=== PATIENT | female | born 1965 | race Caucasian/White ===

== ENCOUNTER 2017-06-02 10:45 | Emergency (ER) | payer MEDICAID ==
[~2017-06-02] VITALS: Ht 154.9 cm; Wt 62.5 kg
[2017-06-02 10:48] VITALS: Ht 154.9 cm; Wt 62.5 kg
[2017-06-02] MEDS ORDERED: HC30CR25 TOP (11:18)
[2017-06-02] MEDS ORDERED: PRED20TA PO (11:18)
[2017-06-02] MEDS ORDERED: BEN25 PO (11:18)
--- NOTE | 2017-06-02 11:28 | ERD ---
ER Documentation Chief Complaint Chief Complaint pt bib self with c/o "patches of areas to skin rough" not getting better HPI 51-year-old female comes emergency department with areas of erythema and pain to her lower legs that started 2 days ago. The patient states that she was at home when this started and she describes burning type pain and this is happened before and 3 other occasions. She has a very well delineated rash to her ankles as well as her legs but she denies any new leggings or clothing, lotions , detergents, creams. She denies any fevers, chills. ROS All systems reviewed and are negative except as per history of present illness. Medications Home Meds Active Scripts Hydrocortisone* Topical (Hydrocortisone* Topical) 2.5%-28.3 Gm Cream..g., 1 APPLIC TOP BID, #1 TUB Prov:VASHTI MORTENSEN PA-C 06/02/17 Diphenhydramine Hcl* (Benadryl*) 25 Mg Cap, 25 MG PO Q6, #30 CAP Prov:VASHTI MORTENSEN PA-C 06/02/17 Prednisone* (Prednisone*) 20 Mg Tab, 40 MG PO DAILY for 4 Days, TAB Prov:VASHTI MORTENSEN PA-C 06/02/17 Allergies Allergies: Coded Allergies: No Known Allergy (Unverified , 06/02/17) PMhx/Soc Medical and Surgical Hx: pt denies Medical Hx Hx Substance Use: No Hx Tobacco Use: No Physical Exam Vitals Vital Signs Date Time Temp Pulse Resp B/P Pulse Ox O2 Delivery O2 Flow Rate FiO2 06/02/17 10:48 98.4 74 16 134/76 98 Physical Exam General: Well-developed, well-nourished. The patient appears in no acute distress. HEENT: Head is normocephalic, atraumatic. No scleral icterus. Neck: Supple. Nontender. Lungs: Clear to auscultation. Normal air movement. Heart: Regular rate and rhythm. S1 and S2 are normal. No murmurs, gallops, or rubs. Abdomen: Soft, nontender, nondistended. Bowel sounds are normoactive. Extremities: Well demarcated erythematous rash to her ankles bilaterally at the same level. There is also a triangular-shaped erythematous rash to her lateral lower legs bilaterally. It is linear, there is no lymphatic streaking, no warmth. No vesicles. There is no swelling. Neurologic: Alert and oriented 3. No focal deficits. Skin: Normal turgor. No rash or lesions. Results 24 hrs Current Medications Medications (Trade) Dose Ordered Sig/Liseth Route PRN Reason Start Time Stop Time Status Last Admin Dose Admin Diphenhydramine HCl (Benadryl) 25 mg ONCE ONCE PO 06/02/17 11:30 06/02/17 11:31 06/02/17 11:17 Prednisone (Prednisone) 40 mg ONCE ONCE PO 06/02/17 11:30 06/02/17 11:31 06/02/17 11:17 Procedures/MDM 51-year-old female comes in with a well demarcated rashes to her lower extremities, and has been ongoing for about 2 days and she has had this 3 other occasions. I have asked her multiple times that she has had a new clothing, or leggings or application to the scanner detergent but she denies. Given the well demarcated presentation of the rash this is most consistent with contact dermatitis. There is some erythema but no signs of infection, DVT, nodules, shingles, abscess. The patient was given a dose of prednisone, as well as Benadryl in the emergency department, and she will also be continued on hydrocortisone for local application. Departure Diagnosis: Primary Impression: Rash Condition: Good Patient Instructions: Contact Dermatitis VASHTI MORTENSEN PA-C Jun 02, 2017 11:28
[2017-06-02] MEDS ORDERED: predniSONE 20 MG TAB PO ONE (11:30)
[2017-06-02] MEDS ORDERED: DIPHENHYDRAMINE 25 MG CAP PO ONE (11:30)
== END 2017-06-02 11:35 | disposition home or self-care (01) ==
LOC: FTE 10:45
DX: R21 Rash and other nonspecific skin eruption (principal)
CPT/HCPCS: J7512; Z7502; Z7610; 99284

== ENCOUNTER 2017-09-18 14:17 | Emergency (ER) | END 2017-09-18 19:24 | disposition home or self-care (01) ==

== ENCOUNTER 2018-09-11 16:36 | Emergency (ER) | payer MEDICAID, OTHER ==
[~2018-09-11] VITALS: Ht 162.6 cm; Wt 65.0 kg
[~2018-09-11 16:36] MED LIST: AMLO5TAB4 PO; DIPH1TAB PO; HYDR25TA6 PO; NAPR-688 PO; ONDA4TAB11 PO
[2018-09-11 16:41] VITALS: Ht 162.6 cm; Wt 65.0 kg
--- NOTE | 2018-09-11 17:50 | ERD ---
ER Documentation Chief Complaint Chief Complaint epigastric abd pain HPI The patient is a 53-year-old female, presenting to the ER because of chronic epigastric abdominal pain for more than 4 months, worse with eating, the symptom is worse for the last week. She denies fever, chills, neck pain, chest pain, odynophagia, weight loss, vomiting, dysuria, has loose stool for the last day. She does not smoke, drink Past medical history: Chronic abdominal pain, hypertension Past surgical history: Cholecystectomy ROS All systems reviewed and are negative except as per history of present illness. Medications Home Meds Active Scripts Diphenoxylate HCl/Atropine (Lomotil 2.5-0.025 mg Tablet) 1 Each Tablet, 1 TAB PO Q6H PRN for DIARRHEA, #20 TAB Prov:KAY ZAPIEN DO 09/18/17 Naproxen* (Naproxen*) 500 Mg Tablet, 500 MG PO BID PRN for PAIN, #20 TAB Prov:KAY ZAPIEN DO 09/18/17 Ondansetron (Zofran Odt) 4 Mg Tab.rapdis, 4 MG PO Q6, #10 Prov:KAY ZAPIEN DO 09/18/17 Reported Medications Hydrochlorothiazide* (Hydrochlorothiazide*) 25 Mg Tab, 25 MG PO DAILY, #30 TAB 09/18/17 Amlodipine Besylate* (Norvasc*) 5 Mg Tablet, 5 MG PO DAILY, TAB 09/18/17 Allergies Allergies: Coded Allergies: No Known Allergy (Unverified , 09/18/17) PMhx/Soc History of Surgery: Yes (gallbladder ) Hx Cardiac Disorders: Yes (HTN) Hx Alcohol Use: No Hx Substance Use: No Hx Tobacco Use: No Physical Exam Vitals Vital Signs Date Temp Pulse Resp B/P (MAP) Pulse Ox O2 O2 Flow FiO2 Time Delivery Rate 09/11/18 98.7 65 20 129/81 100 Room Air 18:58 (97) 09/11/18 98.7 63 20 134/74 100 16:41 (94) Physical Exam Const: No acute distress. Head: Atraumatic. Eyes: Normal Conjunctiva. ENT: Normal External Ears, Nose and Mouth. Neck: Full range of motion. No meningismus. Resp: Clear to auscultation bilaterally. Cardio: Regular rate and rhythm. Abd: Soft, non distended, normal bowel sounds, mild RUQ/epigastric abdominal discomfort, no right lower quadrant/rigidity/rebound/CVA tenderness Skin: No petechiae or rashes. Back: No midline or flank tenderness. Ext: No cyanosis, or edema. Neur: Awake and alert. No focal deficit Psych: Normal Mood and Affect. Result Diagram: 09/11/18 1749 09/11/18 1749 Results 24 hrs Laboratory Tests Test 09/11/18 17:49 09/11/18 17:54 09/11/18 17:58 White Blood Count 7.0 10^3/ul Red Blood Count 4.36 10^6/ul Hemoglobin 12.8 g/dl Hematocrit 38.2 % Mean Corpuscular Volume 87.6 fl Mean Corpuscular Hemoglobin 29.4 pg Mean Corpuscular 33.5 g/dl Hemoglobin Concent Red Cell Distribution Width 12.8 % Platelet Count 212 10^3/UL Mean Platelet Volume 8.7 fl Immature Granulocytes % 0.300 % Neutrophils % 50.5 % Lymphocytes % 37.5 % Monocytes % 9.7 % Eosinophils % 1.7 % Basophils % 0.3 % Nucleated Red Blood Cells % 0.0 /100WBC Immature Granulocytes # 0.020 10^3/ul Neutrophils # 3.5 10^3/ul Lymphocytes # 2.6 10^3/ul Monocytes # 0.7 10^3/ul Eosinophils # 0.1 10^3/ul Basophils # 0.0 10^3/ul Nucleated Red Blood Cells # 0.0 10^3/ul Sodium Level 142 mmol/L Potassium Level 3.5 mmol/L Chloride Level 104 mmol/L Carbon Dioxide Level 30 mmol/L Anion Gap 8 Blood Urea Nitrogen 12 mg/dl Creatinine 0.55 mg/dl Est Glomerular Filtrat Rate mL/min > 60 mL/min Glucose Level 97 mg/dl Calcium Level 9.6 mg/dl Total Bilirubin 0.2 mg/dl Direct Bilirubin 0.00 mg/dl Indirect Bilirubin 0.2 mg/dl Aspartate Amino Transf (AST/SGOT) 36 IU/L Alanine 59 IU/L Aminotransferase (ALT/SGPT) Alkaline Phosphatase 79 IU/L Total Protein 7.8 g/dl Albumin 4.4 g/dl Globulin 3.40 g/dl Albumin/Globulin Ratio 1.29 Lipase 194 U/L Bedside Urine pH (LAB) 5.5 5.5 Bedside Urine Protein (LAB) Negative Negative Bedside Urine Glucose (UA) Negative Negative Bedside Urine Ketones (LAB) Negative Negative Bedside Urine Blood 1+ 1+ Bedside Urine Nitrite (LAB) Negative Negative Bedside Urine Leukocyte Esterase 1+ Trace (L Current Medications Medications Dose Sig/Liseth Start Time Status Last (Trade) Ordered Route PRN Stop Time Admin Dose Reason Admin Ondansetron 4 mg ONCE STAT 09/11/18 DC 09/11/18 HCl (Zofran IV 17:54 18:13 Inj) 09/11/18 17:56 40 mg ONCE ONCE 09/11/18 DC 09/11/18 Pantoprazole IV 18:00 18:13 (Protonix 09/11/18 18:01 Iv) 40 ml ONCE ONCE 09/11/18 DC 09/11/18 Miscellaneous PO 18:00 18:13 Medication 09/11/18 18:01 (Gi Cocktail (2)) Procedures/[place] [id number] [facility] Main Line: [phone] DIAGNOSTIC IMAGING REPORT Patient: DIEUDONNE DURANT : 1965 Age: 53 Sex: F MR #: [id number] DOS: 09/11/18 1754 Ordering MD: BIJAN AMAYA MD Location: E/R Room/Bed: PROCEDURE: US Abdomen. CLINICAL INDICATION: abdominal pain TECHNIQUE: Multiple real-time images were acquired of the patient's right upper quadrant abdomen and retroperitoneum utilizing a high resolution transducer. COMPARISON: None FINDINGS: The liver demonstrates normal echogenicity. The liver is normal in size and no focal solid lesions are seen. The liver measures 15.4 cm in length. The portal vein is patent with normal direction of flow. No intrahepatic biliary dilatation is seen. The patient is status post cholecystectomy. The common bile duct measures 6.6 mm in maximal dimension. The visualized portions of the pancreas are unremarkable. The tail of the pancreas is not seen. No free fluid is identified. The right kidney is normal in size, and demonstrate normal echogenicity and cortical thickness. The right kidney measures 10.2 cm in long dimension. There is mild right-sided hydronephrosis. There are no kidney stones. RPTAT: AA IMPRESSION: Mild right-sided hydronephrosis. Status post cholecystectomy. .Raymond Ramires MD, MD Date Time Electronically viewed and signed by .Raymond Ramires MD, MD on 09/11/2018 18:50 .S/ CC: BIJAN AMAYA MD [id number] MEDICAL MAKING DECISION: The patient is a 53-year-old female, presenting with acute cystitis, chronic epigastric abdominal pain unclear etiology, was treated with GI cocktail, Zofran 4 mg IV for nausea and Protonix 40 mg IV with good response, is stable for outpatient follow-up The differential diagnoses considered include but are not limited to choledocholithiasis, cholangitis, pancreatitis, hepatitis, gastritis, peptic ulcer disease, gastric ulcer, appendicitis, cystitis, diverticulitis, partial small bowel obstruction. Departure Diagnosis: Primary Impression: Abdominal pain Additional Impression: UTI (urinary tract infection) Condition: Good Comments She was discharged with Bactrim I discussed the findings with the patient. I advised the patient to follow-up with the primary physician in about 2-3 days for reevaluation and referral to gastroenterology for EGD, sooner if needed and return if any concern. Disclaimer: Inadvertent spelling and grammatical errors are likely due to EHR/dictation software use and do not reflect on the overall quality of patient care. Also, please note that the electronic time recorded on this note does not necessarily reflect the actual time of the patient encounter. BIJAN AMAYA MD Sep 11, 2018 17:50
[2018-09-11] MEDS ORDERED: ONDANSETRON 4 MG INJ IV STA (17:54)
[2018-09-11] MEDS ORDERED: PANTOPRAZOLE 40 MG INJ IV ONE (18:00)
[2018-09-11] MEDS ORDERED: LIDOCAINE/MYLANTA 40 ML BTL PO ONE (18:00)
[2018-09-11 18:58] VITALS: BP 129/81; PULSE 65; RESP 20
[2018-09-11] MEDS ORDERED: SULF1TAB31 PO (19:07)
[2018-09-11] MEDS ORDERED: AMLO5TAB4 PO (19:19)
== END 2018-09-11 19:35 | disposition home or self-care (01) ==
LOC: E/R 16:36
DX: N39.0 Urinary tract infection, site not specified (principal); I10 Essential (primary) hypertension
CPT/HCPCS: 36415; 76705; 80053; 81003; 83690; 85025; 96374; 96375; C9113; J2405; Z7502; Z7610